=== PATIENT | male | born 1950 | race Caucasian/White ===

== ENCOUNTER → 2016-08-30 | Outpatient (CLI) | payer SELFPAY | END | disposition home or self-care (01) | LOC: GMAB 10:41 | PROVIDERS: ATTEND Family Medicine | DX: R53.82 Chronic fatigue, unspecified (principal); Z12.5 Encounter for screening for malignant neoplasm of prostate | CPT/HCPCS: 84403; 84443; G0103 ==

== ENCOUNTER 2016-09-22 05:44 | Day surgery (SDC) | payer MEDICARE, OTHER ==
[2016-09-22] MEDS ORDERED: LACTATED RINGERS 1,000 ML ONE (06:12)
--- NOTE | 2016-09-22 08:35 | OP ---
DATE OF PROCEDURE: 09/22/16 PREPROCEDURE DIAGNOSIS: 1. Colon cancer screen. POSTPROCEDURE DIAGNOSIS: 1. Normal colon cancer screening other than diverticulosis. PROCEDURE: 1. Colonoscopy to the cecum. SURGEON: Romeo Crain MD. ANESTHESIA: Monitored anesthesia care. FINDINGS: With the patient under adequate sedation, the scope was introduced. Digital exam showed normal anal canal with no rectal masses and normal sized prostate. Colon examination was done to good advantage. Colon preparation was good. Straightforward colonoscopy to the cecum. The ileocecal valve and appendix opening both identified. Moderate diverticulosis in the sigmoid and descending colon area. No diverticular stricture. No polyp or tumor. The entire examination of the colon was otherwise unremarkable. Both flexures were carefully examined. No other abnormality. Scope withdrawal time was 6 minutes. FINAL IMPRESSION: 1. Diverticulosis of the colon, mild to moderate. 2. Otherwise unremarkable colonoscopy. RECOMMENDATION: Colon screening in 10 years. Increase dietary fiber. #[id number] cc: MD Romeo Pacheco MD MTDD
[2016-09-22 08:52] VITALS: O2SAT 96
[2016-09-22 08:53] VITALS: BP 129/88; TEMP 97.5
[2016-09-22] MEDS ORDERED: PROPOFOL 200 MG/20 ML VIAL IV ONE (12:00)
[2016-09-22] MEDS ORDERED: LIDOCAINE 1% 10 ML VIAL INJ ONE (12:00)
== END 2016-09-22 08:55 | disposition home or self-care (01) ==
LOC: AMB 05:44
PROVIDERS: ATTEND Internal Medicine Gastroenterology
DX: Z12.11 Encounter for screening for malignant neoplasm of colon (principal); Z86.010 Personal history of colon polyps; Z83.71 Family history of colonic polyps; K57.30 Diverticulosis of large intestine without perforation or abscess without bleeding
CPT/HCPCS: 00810; G0121; J3490; J7120